=== PATIENT | male | born 1980 | race Two or more races ===

== ENCOUNTER 2024-06-06 06:18 | Day surgery (SDC) | payer OTHER, SELFPAY | END 2024-06-06 09:15 | disposition home or self-care (01) | LOC: GI 06:18 | PROVIDERS: ATTENDING PHYSICIAN Internal Medicine Gastroenterology | DX: Z12.11 Encounter for screening for malignant neoplasm of colon (principal); D12.0 Benign neoplasm of cecum; D12.8 Benign neoplasm of rectum; K52.9 Noninfective gastroenteritis and colitis, unspecified; K63.89 Other specified diseases of intestine; K64.8 Other hemorrhoids | CPT/HCPCS: 45385; 45380; 88305 ==